=== PATIENT | female | born 1950 | race Caucasian/White ===

== ENCOUNTER 2021-07-01 07:20 | Day surgery (SDC) | payer OTHER, SELFPAY ==
[~2021-07-01] VITALS: Ht 149.9 cm; Wt 40.8 kg
[2021-07-01] MEDS ORDERED: SIMETHICONE 40 MG/0.6 ML ML ONE (07:44)
[2021-07-01] MEDS ORDERED: BENZOCAINE 20% 0.5mL UD SPRAY MM ONE (07:44)
[2021-07-01] MEDS ORDERED: MIDAZOLAM HCL 5 MG/5 ML VIAL ONE (07:45)
[2021-07-01] MEDS ORDERED: fentaNYL CITRATE/PF 100 MCG/2 ML AMP ONE (07:45)
[2021-07-01 11:13] VITALS: BP_SYST 127
== END 2021-07-01 10:40 | disposition home or self-care (01) ==
LOC: SDS 07:20 → SMU 07:27 → SDS 10:40
PROVIDERS: ATTEND Internal Medicine
DX: R63.4 Abnormal weight loss (principal); D12.5 Benign neoplasm of sigmoid colon; D12.3 Benign neoplasm of transverse colon; K57.30 Diverticulosis of large intestine without perforation or abscess without bleeding; K29.50 Unspecified chronic gastritis without bleeding; K29.80 Duodenitis without bleeding; K20.90 Esophagitis, unspecified without bleeding; Z79.899 Other long term (current) drug therapy
CPT/HCPCS: 36415; 43239; 45385; 88305; 88312; 88313; J2250; J3010